=== PATIENT | male | born 1975 ===

== ENCOUNTER → 2024-10-26 07:28 | Outpatient (CLI) | payer OTHER ==
[2024-10-26 08:10] LABS: BASO % 1.4 % (0.1-1.2); EOS # 0.11 (0.04-0.54); EOS % 2.2 % (0.7-7.0); LYMPH # 1.90 (1.18-3.74); LYMPH % 37.3 % (19.3-53.1); MEAN PLATELET VOLUME 8.50 fl (9.4-12.4); MONO # 0.41 (0.24-0.82); MONO % 8.0 % (4.7-12.5); NEUT # 2.60 (1.56-6.13); NEUT % 50.9 % (34.0-71.1); RED CELL DISTRIBUTION WIDTH 12.0 % (11.6-14.4)
[2024-10-26 08:12] LABS: URINE APPEARANCE Clear; URINE BILIRRUBIN Negative (NEGATIVE); URINE BLOOD Negative; URINE COLOR Yellow; URINE GLUCOSE Negative (NEGATIVE); URINE KETONE Trace (NEGATIVE); URINE LEUKOCYTE Negative; URINE NITRATE Negative; URINE PROTEIN Negative (NEGATIVE); URINE UROBILINOGEN 0.2 E.U./dl
[2024-10-26 08:16] LABS: URINE BACTERIA 8.3 uL (0.0-1933); URINE RBC 9.5 uL (0.0-20.8); URINE WBC 2.4 uL (0.0-23.2)
[2024-10-26 08:42] LABS: URINE CAST 0.14 uL (0.0-1.40); URINE EPITHELIAL CELLS 1.3 uL (0.0-38.8)
[2024-10-26 09:14] LABS: ALT/SGPT 39.0 U/L (12-78); AST/SGOT 30.0 U/L (15-37); BILIRUBIN TOTAL 0.71 mg/dL (0.3-1.2); BUN CREA RATIO 14.0 (7.0-25.0); CHOL HDL RATIO 3.3 (0-5.0); CREATININE SERUM 1.23 mg/dL (0.70-1.30); GFR 62.04; GLOBULINA 3.4 G/DL (2.4-3.5); GLUCOSE FASTING 95.0 mg/dL (65-100); HDL 45.0 mg/dl (40-60); LDL 84.0 mg/dl (0-130); OSMOLALITY SERUM 286.0 MOSM/KG (275-295); TSH 1.53 uIU/mL (0.358-3.74); VLDL 17.0 (0-39)
[2024-10-26 10:59] LABS: VITAMIN D3 25 HYDROXY 39.56 ng/ml (30-120)
== END | disposition home or self-care (01) ==
LOC: LAB 07:28
DX: E78.2 Mixed hyperlipidemia (principal); R73.03 Prediabetes; I10 Essential (primary) hypertension; E55.9 Vitamin D deficiency, unspecified